=== PATIENT | female | born 1960 | race Caucasian/White ===

== ENCOUNTER → 2018-12-13 | Outpatient (CLI) | payer BC, OTHER | END | disposition home or self-care (01) | LOC: CFH 11:02 | PROVIDERS: ATTEND Internal Medicine Cardiovascular Disease | DX: I48.91 Unspecified atrial fibrillation (principal); I11.9 Hypertensive heart disease without heart failure; E78.5 Hyperlipidemia, unspecified; Z86.73 Personal history of transient ischemic attack (TIA), and cerebral infarction without residual deficits | CPT/HCPCS: 93306 ==

== ENCOUNTER 2019-01-24 11:33 | Outpatient (CLI) | payer BC ==
[2019-01-24] MEDS ORDERED: APIX5TAB PO (13:23)
[2019-01-24] MEDS ORDERED: UBID100C41 PO (13:23)
[2019-01-24] MEDS ORDERED: OMEG-158 PO (13:23)
[2019-01-24] MEDS ORDERED: [UNRECOGNIZED DRUG - CODE] PO (13:23)
[2019-01-24] MEDS ORDERED: VALS1TAB30 PO (13:23)
[2019-01-24] MEDS ORDERED: METO-99 PO (13:23)
[2019-01-24] MEDS ORDERED: MAGN250T8 PO (13:23)
[2019-01-24] MEDS ORDERED: MONT10TA6 PO (13:23)
[2019-01-24] MEDS ORDERED: OMNIPAQUE 350 MG/ML, 150 ML BOTTLE ONE (15:10)
== END 2019-01-24 23:59 | disposition home or self-care (01) ==
LOC: CFH 11:33
PROVIDERS: ATTEND Internal Medicine Cardiovascular Disease
DX: Z01.811 Encounter for preprocedural respiratory examination (principal); I48.91 Unspecified atrial fibrillation
CPT/HCPCS: 71046; 75572; Q9967

== ENCOUNTER 2019-01-25 06:20 | Inpatient (IN) | payer BC ==
[2019-01-24 13:24] VITALS: BP 135/84
[~2019-01-25] VITALS: Ht 167.6 cm; Wt 100.9 kg
[~2019-01-25 06:20] MED LIST: APIX5TAB PO; MAGN250T8 PO; METO-99 PO; MONT10TA6 PO; OMEG-158 PO; UBID100C41 PO; VALS1TAB30 PO; [UNRECOGNIZED DRUG - CODE] PO
[2019-01-25] MEDS ORDERED: SODIUM CHLORIDE 0.9% 1,000 ML IV SCH (06:48)
[2019-01-25] MEDS ORDERED: FENTANYL PF 250 MCG/5ML ONE (07:52)
[2019-01-25] MEDS ORDERED: MIDAZOLAM 1 MG/ML, 2ML ONE (07:52)
[2019-01-25] MEDS ORDERED: DEXAMETHASONE 4 MG/ML, 1ML ONE (07:54)
[2019-01-25] MEDS ORDERED: SUCCINYLCHOLINE 20 MG/ML, 10ML ONE (07:54)
[2019-01-25] MEDS ORDERED: PROPOFOL 10 MG/ML, 20ML ONE (07:54)
[2019-01-25] MEDS ORDERED: ROCURONIUM 10MG/ML,5ML ONE (07:54)
[2019-01-25] MEDS ORDERED: LIDOCAINE 1%, 20ML ONE (08:31)
[2019-01-25] MEDS ORDERED: EPHEDRINE 50 MG/ML, 1ML ONE (08:39)
[2019-01-25] MEDS ORDERED: HEPARIN 1,000 UNITS/ML, 10ML ONE (08:39)
[2019-01-25] MEDS ORDERED: ALBUTEROL HFA 90 MCG/SPRAY ONE (09:06)
[2019-01-25] MEDS ORDERED: APIXABAN 5 MG TABLET ONE (09:07)
[2019-01-25] MEDS ORDERED: ONDANSETRON 2MG/ML, 2ML ONE ×2 (10:41)
[2019-01-25] MEDS ORDERED: PROMETHAZINE 25 MG/ML, 1ML IV PRN (11:30)
[2019-01-25] MEDS ORDERED: hydrALAzine 20 MG/ML, 1ML IV PRN (11:30)
[2019-01-25] MEDS ORDERED: MIDAZOLAM 1 MG/ML, 2ML IV PRN (11:30)
[2019-01-25] MEDS ORDERED: MORPHINE SULFATE 4 MG/ML, 1ML IVPush PRN (11:30)
[2019-01-25] MEDS ORDERED: HALOPERIDOL 5 MG/ML IV PRN (11:30)
[2019-01-25] MEDS ORDERED: ONDANSETRON 2MG/ML, 2ML IV PRN (11:30)
[2019-01-25] MEDS ORDERED: EPHEDRINE 50 MG/ML, 1ML IVPush PRN (11:30)
[2019-01-25] MEDS ORDERED: HYDROmorphone 2 MG/ML, 1ML IVPush PRN (11:30)
[2019-01-25] MEDS ORDERED: LABETALOL 5MG/ML, 20ML IV PRN (11:30)
[2019-01-25] MEDS ORDERED: OXYcodone 5 MG/5 ML ORAL.SOL UDC PO PRN (11:30)
[2019-01-25] MEDS ORDERED: ALBUTEROL SULFATE 2.5 MG/3 ML NPPB PRN (11:30)
[2019-01-25] MEDS ORDERED: APIXABAN 5 MG TABLET PO SCH (11:30)
[2019-01-25] MEDS ORDERED: DIAZEPAM 5 MG/ML, 2ML IVPush PRN (11:30)
[2019-01-25] MEDS ORDERED: PROMETHAZINE 12.5 MG SUPP PR PRN (11:30)
[2019-01-25] MEDS ORDERED: ONDANSETRON ODT 8 MG PO PRN (11:30)
[2019-01-25] MEDS ORDERED: MEPERIDINE/PF 25MG/0.5ML IVPush PRN (11:30)
[2019-01-25] MEDS ORDERED: ACETAMINOPHEN 325 MG TABLET PO PRN (11:30)
[2019-01-25] MEDS ORDERED: FENTANYL PF 100 MCG/2ML IV PRN (11:30)
[2019-01-25] MEDS: APIXABAN 5 MG TABLET PO SCH ×2 (11:30→20:16)
[2019-01-25 12:56] VITALS: BP 100/63
[2019-01-25] MEDS: OMEGA-3/FISH OIL CAPSULE PO SCH (14:00)
[2019-01-25 19:22] VITALS: BP 100/67
[2019-01-25 20:00] VITALS: BP 102/60
[2019-01-25] MEDS: METOPROLOL TARTRATE 100 MG TABLET PO SCH (20:15)
[2019-01-25] MEDS: LEVETIRACETAM 750 MG HOMEMEDPO SCH (20:16)
[2019-01-25] MEDS ORDERED: MONTELUKAST 10 MG TABLET ONE (20:31)
[2019-01-25] MEDS: MONTELUKAST 10 MG TABLET PO SCH (20:32)
[2019-01-26 01:12] VITALS: BP 104/70
[2019-01-26] MEDS ORDERED: KETOROLAC 30 MG/1 ML IVPush SCH (06:30)
[2019-01-26 07:20] VITALS: BP 107/72
[2019-01-26] MEDS ORDERED: MONTELUKAST 10 MG TABLET PO SCH (09:00)
[2019-01-26] MEDS ORDERED: TEMPLATE NON-FORMULARY MED. (Ubidecarenone** (Co Q-10**) 100 MG) PO SCH (09:00)
[2019-01-26] MEDS: OMEGA-3/FISH OIL CAPSULE PO SCH (09:06)
[2019-01-26] MEDS: APIXABAN 5 MG TABLET PO SCH ×2 (09:06→21:20)
[2019-01-26] MEDS: MAGNESIUM OXIDE 400 MG TABLET PO SCH (09:06)
[2019-01-26] MEDS: VALSARTAN 320 MG TABLET PO SCH (09:06)
[2019-01-26] MEDS: HYDROCHLOROTHIAZIDE 25 MG TABLET PO SCH (09:06)
[2019-01-26] MEDS: METOPROLOL TARTRATE 100 MG TABLET PO SCH ×2 (09:07→21:21)
[2019-01-26] MEDS: LEVETIRACETAM 750 MG HOMEMEDPO SCH ×2 (09:07→21:20)
[2019-01-26] MEDS ORDERED: KETOROLAC 30 MG/1 ML IM PRN (10:00)
[2019-01-26] MEDS ORDERED: FUROSEMIDE 20 MG/2 ML IV ONE (11:00)
[2019-01-26 11:14] VITALS: BP 120/75
[2019-01-26 13:33] VITALS: BP 106/72
[2019-01-26] MEDS: ACETAMINOPHEN 325 MG TABLET PO PRN (17:48)
[2019-01-26 18:59] VITALS: BP 100/64
[2019-01-26] MEDS: MONTELUKAST 10 MG TABLET PO SCH (21:21)
[2019-01-27 00:51] VITALS: BP 109/72
[2019-01-27 05:09] LABS: BASOPHILS # (AUTO) 0.08 x10^3/uL (0-0.1); BASOPHILS % (AUTO) 1 % (0-1); EOSINOPHILS # (AUTO) 0.01 x10^3/uL (0-0.4); EOSINOPHILS % (AUTO) 0 % (1-7); LYMPHOCYTES # (AUTO) 1.25 x10^3/uL (1-3.4); LYMPHOCYTES % (AUTO) 13 % (22-44); MD NO; MEAN CORPUSCULAR HEMOGLOBIN 31.6 pg (27.0-34.8); MEAN CORPUSCULAR HGB CONC 33.8 g/dL (32.4-35.8); MEAN CORPUSCULAR VOLUME 93.7 fL (80-100); MEAN PLATELET VOLUME 10.1 fL (7.4-10.4); MONOCYTES # (AUTO) 1.15 x10^3/uL (0.2-0.8); MONOCYTES % (AUTO) 12 % (2-9); NEUTROPHILS # (AUTO) 7.37 x10^3/uL (1.8-6.8); NEUTROPHILS % (AUTO) 75 % (42-75); PLATELET COUNT 164 x10^3/uL (130-400); RED BLOOD COUNT 3.45 x10^6/uL (3.82-5.3); RED CELL DISTRIBUTION WIDTH 12.8 % (9.6-15.2)
[2019-01-27 05:20] LABS: CHLORIDE 101 mmol/L (98-107)
[2019-01-27 05:26] LABS: ANION GAP 5 mmol/L (5-15); CALCIUM 8.5 mg/dL (8.5-10.1); CREATININE 0.58 mg/dL (0.55-1.02)
[2019-01-27 06:53] VITALS: BP 111/73
[2019-01-27] MEDS: HYDROCHLOROTHIAZIDE 25 MG TABLET PO SCH (08:00)
[2019-01-27] MEDS: APIXABAN 5 MG TABLET PO SCH ×2 (08:00→21:22)
[2019-01-27] MEDS: VALSARTAN 320 MG TABLET PO SCH (08:00)
[2019-01-27] MEDS: MAGNESIUM OXIDE 400 MG TABLET PO SCH (08:00)
[2019-01-27] MEDS: OMEGA-3/FISH OIL CAPSULE PO SCH (08:00)
[2019-01-27] MEDS: METOPROLOL TARTRATE 100 MG TABLET PO SCH ×2 (08:00→21:22)
[2019-01-27] MEDS: LEVETIRACETAM 750 MG HOMEMEDPO SCH ×2 (08:01→21:22)
[2019-01-27] MEDS ORDERED: POTASSIUM CHLORIDE 20 MEQ TAB.ER.PRT PO ONE (08:30)
[2019-01-27 12:45] VITALS: BP 107/77
[2019-01-27] MEDS ORDERED: LIDOCAINE-MPF 1%, 5ML ONE (13:54)
[2019-01-27 19:32] VITALS: BP 99/62
[2019-01-27] MEDS: MONTELUKAST 10 MG TABLET PO SCH (21:22)
[2019-01-28 01:03] VITALS: BP 123/80
[2019-01-28 07:41] VITALS: BP 133/86
[2019-01-28] MEDS: MAGNESIUM OXIDE 400 MG TABLET PO SCH (09:14)
[2019-01-28] MEDS: VALSARTAN 320 MG TABLET PO SCH (09:14)
[2019-01-28] MEDS: APIXABAN 5 MG TABLET PO SCH (09:14)
[2019-01-28] MEDS: METOPROLOL TARTRATE 100 MG TABLET PO SCH (09:14)
[2019-01-28] MEDS: OMEGA-3/FISH OIL CAPSULE PO SCH (09:14)
[2019-01-28] MEDS: HYDROCHLOROTHIAZIDE 25 MG TABLET PO SCH (09:18)
[2019-01-28] MEDS: LEVETIRACETAM 750 MG HOMEMEDPO SCH (09:18)
[2019-01-28 12:10] VITALS: BP 114/74
[2019-01-28] MEDS: ACETAMINOPHEN 325 MG TABLET PO PRN (14:38)
[2019-01-28] MEDS ORDERED: ACET325T14 PO (15:00)
== END 2019-01-28 16:15 | disposition home or self-care (01) | DRG 274 ==
LOC: CACL 06:20 → ORIP 11:13 → 5SO 12:48 → OBSVTOIN 01-26 10:37 → DCLOUNGE 01-28 16:09
PROVIDERS: ADMIT Internal Medicine Cardiovascular Disease; ATTEND Internal Medicine Cardiovascular Disease
PROC: 02583ZZ Destruction of Conduction Mechanism, Percutaneous Approach (ICD-10-PCS; 2019-01-25)
PROC: 4A0234Z Measurement of Cardiac Electrical Activity, Percutaneous Approach (ICD-10-PCS; 2019-01-25)
PROC: 02K83ZZ Map Conduction Mechanism, Percutaneous Approach (ICD-10-PCS; 2019-01-25)
PROC: B246ZZZ Ultrasonography of Right and Left Heart (ICD-10-PCS; 2019-01-25)
PROC: 03HY32Z Insertion of Monitoring Device into Upper Artery, Percutaneous Approach (ICD-10-PCS; 2019-01-25)
PROC: 4A023FZ Measurement of Cardiac Rhythm, Percutaneous Approach (ICD-10-PCS; principal; 2019-01-25 08:00)
PROC: 0W993ZZ Drainage of Right Pleural Cavity, Percutaneous Approach (ICD-10-PCS; 2019-01-27)
DX: I48.91 Unspecified atrial fibrillation (principal); D68.69 Other thrombophilia; I31.3 Pericardial effusion (noninflammatory); J98.11 Atelectasis; E78.00 Pure hypercholesterolemia, unspecified; I48.3 Typical atrial flutter; J45.909 Unspecified asthma, uncomplicated; J98.6 Disorders of diaphragm; I10 Essential (primary) hypertension; E66.9 Obesity, unspecified; E78.5 Hyperlipidemia, unspecified; K21.9 Gastro-esophageal reflux disease without esophagitis; R09.02 Hypoxemia; Z87.891 Personal history of nicotine dependence; Z86.73 Personal history of transient ischemic attack (TIA), and cerebral infarction without residual deficits; Z68.35 Body mass index [BMI] 35.0-35.9, adult
CPT/HCPCS: 32555; 36415; 76000; 93655; 93656; 93657; 93662; J3490; 71045; 71046; 80048; 85025; 85347; 93005; 93308; 93312; 93321; 93325; C1731; C1732; C1766; C1893; C1894; G0378; J1100; J1644; J1885; J2250; J2405; J2704; J3010; C1730; C1759; J0330; J1940